=== PATIENT | male | born 1985 | race Caucasian/White ===

== ENCOUNTER 2018-09-29 15:16 | Emergency (ER) | payer MEDICAID ==
[2018-09-29] MEDS: KETOROLAC 15 MG INJ IV (16:24)
[2018-09-29] MEDS: ENALAPRILAT 1.25 MG INJ IV (16:24)
[2018-09-29] MEDS: SOD CHLORIDE 0.9% 500 ML IV (16:24)
[2018-09-29 16:33] LABS: ADD MAN DIFF? NO
[2018-09-29 16:34] LABS: WHITE BLOOD COUNT 8.2 10^3/ul (4.8-10.8)
[2018-09-29 16:34] LABS: BASOPHILS % 0.5 % (0.0-2.0); EOSINOPHILS # 0.1 10^3/ul (0.0-0.5); EOSINOPHILS % 1.1 % (0.0-7.0); HEMATOCRIT 46.4 % (42.0-52.0); HEMOGLOBIN 15.9 g/dl (14.0-18.0); LYMPHOCYTES # 1.6 10^3/ul (0.8-2.9); LYMPHOCYTES % 19.6 % (15.0-51.0); MEAN CORPUSCULAR HEMOGLOBIN 30.9 pg (29.0-33.0); MEAN CORPUSCULAR HGB CONC 34.3 g/dl (32.0-37.0); MEAN CORPUSCULAR VOLUME 90.1 fl (82.0-101.0); MEAN PLATELET VOLUME 10.6 fl (7.4-10.4); MONOCYTES % 11.6 % (0.0-11.0); NEUTROPHIL # 5.5 10^3/ul (1.6-7.5); NEUTROPHILS % 66.8 % (39.0-77.0); PLATELET COUNT 216 10^3/UL (140-415); RED BLOOD COUNT 5.15 10^6/ul (4.70-6.10); RED CELL DISTRIBUTION WIDTH 11.6 % (11.5-14.5)
[2018-09-29 16:45] LABS: ALANINE AMINOTRANSFERASE 111 IU/L (13-69); ALBUMIN 4.9 g/dl (3.3-4.9); ALBUMIN/GLOBULIN RATIO 1.44; ALKALINE PHOSPHATASE 71 IU/L (42-121); ANION GAP 13 (5-13); ASPARTATE AMINO TRANSFERASE 66 IU/L (15-46); BILIRUBIN,INDIRECT 0.1 mg/dl (0-1.1); BILIRUBIN,TOTAL 0.1 mg/dl (0.2-1.3); CALCIUM 9.9 mg/dl (8.4-10.2); CARBON DIOXIDE 29 mmol/L (21-31); CHLORIDE 102 mmol/L (97-110); Estimated GFR > 60 mL/min (>60); GLUCOSE 109 mg/dl (70-220); LIPASE 106 U/L (23-300); POTASSIUM 4.4 mmol/L (3.5-5.1); SODIUM 144 mmol/L (135-144); TOTAL PROTEIN 8.3 g/dl (6.1-8.1)
[2018-09-29 16:54] LABS: BLOOD UREA NITROGEN 15 mg/dl (7-20); CREATININE 0.85 mg/dl (0.61-1.24)
[2018-09-29 16:56] LABS: TROPONIN-I < 0.012 ng/ml (0.000-0.120)
== END 2018-09-29 17:28 | disposition home or self-care (01) ==
LOC: E/R 17:28
DX: R00.2 Palpitations (principal); F41.9 Anxiety disorder, unspecified; I10 Essential (primary) hypertension
CPT/HCPCS: 36415; 71045; 80053; 83690; 84484; 85025; 93005; 96374; 96375; 99285-25

== ENCOUNTER 2019-02-23 08:21 | Emergency (ER) | payer MEDICAID ==
[2019-02-23] MEDS: LIDOCAINE/MYLANTA 40 ML BTL PO (09:30)
[2019-02-23] MEDS: LORAZEPAM 0.5 MG TAB PO (09:30)
[2019-02-23] MEDS: FAMOTIDINE 20 MG TAB PO (09:30)
== END 2019-02-23 09:55 | disposition home or self-care (01) ==
LOC: FTE 09:55
DX: K21.9 Gastro-esophageal reflux disease without esophagitis (principal)
CPT/HCPCS: 71046; 93005; 99284-25